=== PATIENT | male | born 1960 | race Caucasian/White ===

== ENCOUNTER 2017-02-21 02:02 | Emergency (ER) | payer SELFPAY ==
[~2017-02-21] VITALS: Ht 167.6 cm; Wt 90.0 kg
[~2017-02-21 02:02] MED LIST: BACTRIM DS1 TAB PO; CLINDAMYCIN300 M1 PO; LORTAB 10-325 M1 TAB PO; MEDDOSEPAK OR; NO HOME MEDS
[2017-02-21 03:30] LABS: HEMOGLOBIN 12.1 g/dl (14.0-18.0); IMMATURE GRANULOCYTES 0.7 % (0.0-1.0); MEAN CELL VOLUME 92.5 fL CALC (80.0-100.0); MEAN CORPUSCULAR HGB 30.3 pG CALC (26.0-32.0); MEAN CORPUSCULAR HGB CONC 32.7 g/L CALC (32.0-36.0); NEUT# 13.42 thou/uL (1.82-7.42); RED CELL DISTRI WIDTH 13.4 % (11.5-15.5)
[2017-02-21 03:43] LABS: ALBUMIN 3.6 g/dL (3.2-5.0); BILIRUBIN, TOTAL 0.8 mg/dL (0.0-1.4); CREATININE 1.8 mg/dL (0.7-1.3); POTASSIUM 3.6 mmol/l (3.5-5.1); TOTAL PROTEIN 7.4 g/dL (6.3-8.2)
[2017-02-21 03:52] LABS: URINE BILIRUBIN - DIPSTICK NEGATIVE (NEGATIVE); URINE BLOOD DIPSTICK LARGE (NEGATIVE); URINE CLARITY CLEAR; URINE COLOR YELLOW; URINE GLUCOSE - DIPSTICK NEGATIVE (NEGATIVE); URINE KETONE NEGATIVE (NEGATIVE); URINE LEUK ESTERASE NEGATIVE (NEGATIVE); URINE NITRITE - DIPSTICK NEGATIVE (Negative); URINE PROTEIN - DIPSTICK 100 mg/dL (NEG-TRACE); URINE UROBILINOGEN - DIPSTICK 0.2 E.U./dL (0.2)
[2017-02-21 04:14] LABS: URINE BACTERIA FEW hpf
[2017-02-21 04:15] LABS: URINE YEAST FEW hpf
[2017-02-21 08:41] VITALS: BP 102/52
== END 2017-02-21 08:44 | disposition short-term general hospital (02) | DRG 552 ==
LOC: ED 02:02 → ED-I 02:09 → ED 02:09 → ED-I 06:25 → ED 08:44
PROVIDERS: Emergency Medicine
DX: M54.5 Low back pain (principal); B95.62 Methicillin resistant Staphylococcus aureus infection as the cause of diseases classified elsewhere; R93.7 Abnormal findings on diagnostic imaging of other parts of musculoskeletal system; G89.29 Other chronic pain; R31.9 Hematuria, unspecified; D72.829 Elevated white blood cell count, unspecified; M47.817 Spondylosis without myelopathy or radiculopathy, lumbosacral region

== ENCOUNTER 2017-11-02 17:46 | Emergency (ER) | payer BC ==
[~2017-11-02] VITALS: Ht 167.6 cm; Wt 90.0 kg
[2017-11-02] MEDS ORDERED: PREDNISONE10 MG PO (20:17)
[2017-11-02 20:30] VITALS: BP 128/77
== END 2017-11-02 20:30 | disposition home or self-care (01) | DRG 74 ==
LOC: ED 17:46
DX: M54.12 Radiculopathy, cervical region (principal); M75.92 Shoulder lesion, unspecified, left shoulder; M46.92 Unspecified inflammatory spondylopathy, cervical region; I25.10 Atherosclerotic heart disease of native coronary artery without angina pectoris; M54.30 Sciatica, unspecified side

== ENCOUNTER 2017-11-12 12:37 | Emergency (ER) | payer BC ==
[~2017-11-12] VITALS: Ht 167.6 cm; Wt 90.9 kg
[~2017-11-12 12:37] MED LIST changes: +PREDNISONE10 MG PO
[2017-11-12] MEDS ORDERED: ASPERCREME LIDOCA41 TOP (13:16)
[2017-11-12] MEDS ORDERED: PREDNISONE50 MG PO (13:16)
[2017-11-12 13:18] VITALS: BP 135/75
== END 2017-11-12 13:20 | disposition home or self-care (01) | DRG 556 ==
LOC: ED 12:37
DX: M25.512 Pain in left shoulder (principal)

== ENCOUNTER 2018-04-17 05:23 | Inpatient (IN) | payer BC ==
[2018-04-17] VITALS (16 sets, daily range): BP systolic 90–107; BP diastolic 56–92
[~2018-04-17] VITALS: Ht 167.6 cm; Wt 84.0 kg
[~2018-04-17 05:23] MED LIST changes: +ASPERCREME LIDOCA41 TOP; +PREDNISONE50 MG PO
[2018-04-17 06:06] LABS: URINE BILIRUBIN - DIPSTICK NEGATIVE (NEGATIVE); URINE BLOOD DIPSTICK LARGE (NEGATIVE); URINE COLOR YELLOW; URINE GLUCOSE - DIPSTICK >=1000 mg/dL (NEGATIVE); URINE KETONE NEGATIVE (NEGATIVE); URINE LEUK ESTERASE NEGATIVE (NEGATIVE); URINE NITRITE - DIPSTICK NEGATIVE (Negative); URINE PROTEIN - DIPSTICK NEGATIVE (NEG-TRACE); URINE SPECIFIC GRAVITY <=1.005; URINE UROBILINOGEN - DIPSTICK 0.2 E.U./dL (0.2)
[2018-04-17 06:07] LABS: URINE CLARITY CLEAR
[2018-04-17 06:13] LABS: URINE RBC 25-50 RBC/hpf (0-5); URINE SQUAMOUS EPITHELIAL CELL FEW EPI/hpf (0-FEW)
[2018-04-17] MEDS ORDERED: PERCOCET 10/31 COMBO PO (06:16)
[2018-04-17] MEDS ORDERED: GABAPENTIN600 MG PO (06:17)
[2018-04-17] MEDS ORDERED: ROBAXIN-750750 MG PO (06:17)
[2018-04-17] MEDS ORDERED: AMOXICILLIN/CLAVULAN PO (06:19)
[2018-04-17 06:39] LABS: IMMATURE GRANULOCYTES 0.8 % (0.0-5.0); MEAN CELL VOLUME 91.4 fL CALC (80.0-100.0); MEAN CORPUSCULAR HGB 31.6 pG CALC (26.0-32.0); MEAN CORPUSCULAR HGB CONC 34.6 g/L CALC (32.0-36.0); NEUT# 3.12 thou/uL (1.82-7.42); RED BLOOD COUNT 4.87 mill/uL (4.70-6.10); RED CELL DISTRI WIDTH 12.5 % (11.5-15.5)
[2018-04-17 06:41] LABS: HEMATOCRIT 44.5 % (39.0-50.0); HEMOGLOBIN 15.4 g/dl (14.0-18.0)
[2018-04-17 06:45] LABS: ALBUMIN 3.5 g/dL (3.2-5.0); ALKALINE PHOSPHATASE 146 u/l (38-126); BILIRUBIN, TOTAL 0.5 mg/dL (0.0-1.4); BUN 30 mg/dL (9-20); BUN/CREATININE RATIO 34 (12-20 (CALC)); CARBON DIOXIDE 23 mmol/l (22-30); CHLORIDE 86 mmol/l (95-108); CREATININE 0.9 mg/dL (0.7-1.3); GFR > 60 ML/MIN (>=60 (CALC)); GFR FOR AFR.AMER. > 60 ML/MIN (>=60 (CALC)); SGOT/AST 53 u/l (17-59); SGPT/ALT 153 u/l (21-72); TOTAL PROTEIN 6.6 g/dL (6.3-8.2)
[2018-04-17 06:55] LABS: ANION GAP 18 (6-22 (CALC)); POTASSIUM 5.1 mmol/l (3.5-5.1); SODIUM 122 mmol/l (137-146)
[2018-04-18] VITALS (10 sets, daily range): BP systolic 94–174; BP diastolic 62–91
[2018-04-18 05:07] LABS: HEMATOCRIT 42.2 % (39.0-50.0); HEMOGLOBIN 14.4 g/dl (14.0-18.0); MEAN CELL VOLUME 92.3 fL CALC (80.0-100.0); MEAN CORPUSCULAR HGB 31.5 pG CALC (26.0-32.0); MEAN CORPUSCULAR HGB CONC 34.1 g/L CALC (32.0-36.0); NEUT# 2.25 thou/uL (1.82-7.42); RED BLOOD COUNT 4.57 mill/uL (4.70-6.10); RED CELL DISTRI WIDTH 13.2 % (11.5-15.5)
[2018-04-18 05:28] LABS: ALKALINE PHOSPHATASE 86 u/l (38-126); BILIRUBIN, TOTAL 0.4 mg/dL (0.0-1.4); BUN 18 mg/dL (9-20); BUN/CREATININE RATIO 24 (12-20 (CALC)); CARBON DIOXIDE 23 mmol/l (22-30); CREATININE 0.8 mg/dL (0.7-1.3); GFR > 60 ML/MIN (>=60 (CALC)); GFR FOR AFR.AMER. > 60 ML/MIN (>=60 (CALC)); MAGNESIUM 1.8 mg/dL (1.6-2.3); SGOT/AST 52 u/l (17-59); SGPT/ALT 109 u/l (21-72); TOTAL PROTEIN 5.5 g/dL (6.3-8.2)
[2018-04-18 05:30] LABS: ANION GAP 11 (6-22 (CALC)); SODIUM 134 mmol/l (137-146)
[2018-04-18 05:31] LABS: ALBUMIN 2.7 g/dL (3.2-5.0); CHLORIDE 104 mmol/l (95-108); POTASSIUM 3.8 mmol/l (3.5-5.1)
[2018-04-18 06:18] LABS: URINE BILIRUBIN - DIPSTICK NEGATIVE (NEGATIVE); URINE BLOOD DIPSTICK LARGE (NEGATIVE); URINE COLOR YELLOW; URINE GLUCOSE - DIPSTICK >=1000 mg/dL (NEGATIVE); URINE KETONE NEGATIVE (NEGATIVE); URINE LEUK ESTERASE NEGATIVE (NEGATIVE); URINE NITRITE - DIPSTICK NEGATIVE (Negative); URINE PROTEIN - DIPSTICK NEGATIVE (NEG-TRACE); URINE SPECIFIC GRAVITY 1.015; URINE UROBILINOGEN - DIPSTICK 0.2 E.U./dL (0.2)
[2018-04-18 06:19] LABS: URINE CLARITY SL CLOUDY
[2018-04-19 00:27] VITALS: BP 104/71
[2018-04-19 02:00] VITALS: BP 131/77
[2018-04-19 04:16] VITALS: BP 123/79
[2018-04-19 06:00] VITALS: BP 140/83
[2018-04-19 08:00] VITALS: BP 148/99
[2018-04-19 11:00] VITALS: BP 128/74
== END 2018-04-19 15:15 | disposition home or self-care (01) | DRG 638 ==
LOC: ED 05:23 → ED-I 07:06 → ED 07:19 → ICU 07:20
PROVIDERS: Emergency Medicine; Internal Medicine Nephrology; ADMIT Internal Medicine; ATTEND Internal Medicine
PROC: 3E0234Z Introduction of Serum, Toxoid and Vaccine into Muscle, Percutaneous Approach (ICD-10-PCS; principal; 2018-04-18)
DX: E11.00 Type 2 diabetes mellitus with hyperosmolarity without nonketotic hyperglycemic-hyperosmolar coma (NKHHC) (principal); E87.1 Hypo-osmolality and hyponatremia; M54.30 Sciatica, unspecified side; K04.7 Periapical abscess without sinus; I10 Essential (primary) hypertension; R31.21 Asymptomatic microscopic hematuria; N20.0 Calculus of kidney; N28.89 Other specified disorders of kidney and ureter; Z86.14 Personal history of Methicillin resistant Staphylococcus aureus infection; Z23 Encounter for immunization; Z80.59 Family history of malignant neoplasm of other urinary tract organ; Z87.891 Personal history of nicotine dependence
CPT/HCPCS: Q9967

== ENCOUNTER 2018-05-13 17:38 | Emergency (ER) | payer BC ==
[~2018-05-13] VITALS: Ht 167.6 cm; Wt 88.0 kg
[~2018-05-13 17:38] MED LIST changes: +ALLERGY RELF10 M3 PO; +AMARYL2 MG PO; +AMOX/K CLAV875 M1 PO; +AMOXICILLIN/CLAVULAN PO; +DOXYCYCLINE100 MG; +GABAPENTIN300 M2; +GABAPENTIN600 MG PO; +JANUVIA50 MG PO; +METFORMIN1000 MG PO; +METHOCARBAM500 MG PO; +PERCOCET 10/31 COMBO PO; +ROBAXIN-750750 MG PO
[2018-05-13 18:34] LABS: HEMATOCRIT 38.8 % (39.0-50.0); HEMOGLOBIN 12.8 g/dl (14.0-18.0); MEAN CELL VOLUME 95.8 fL CALC (80.0-100.0); MEAN CORPUSCULAR HGB 31.6 pG CALC (26.0-32.0); RED BLOOD COUNT 4.05 mill/uL (4.70-6.10); RED CELL DISTRI WIDTH 13.2 % (11.5-15.5)
[2018-05-13 18:49] LABS: PROTHROMBIN TIME 10.4 SECONDS (9.0-12.5)
[2018-05-13 19:05] LABS: ALKALINE PHOSPHATASE 71 u/l (38-126); BILIRUBIN, TOTAL 0.4 mg/dL (0.0-1.4); BUN 20 mg/dL (9-20); BUN/CREATININE RATIO 20 (12-20 (CALC)); CARBON DIOXIDE 28 mmol/l (22-30); CHLORIDE 102 mmol/l (95-108); ETHYL ALCOHOL 0 mg/dl (0-30); GFR > 60 ML/MIN (>=60 (CALC)); GFR FOR AFR.AMER. > 60 ML/MIN (>=60 (CALC)); SGOT/AST 60 u/l (17-59); SODIUM 140 mmol/l (137-146); TOTAL PROTEIN 6.3 g/dL (6.3-8.2)
[2018-05-13 19:06] LABS: IMMATURE GRANULOCYTES 0.8 % (0.0-5.0); NEUT# 1.78 thou/uL (1.82-7.42)
[2018-05-13 19:07] LABS: ALBUMIN 3.4 g/dL (3.2-5.0); ANION GAP 15 (6-22 (CALC)); POTASSIUM 4.7 mmol/l (3.5-5.1)
[2018-05-13 19:17] LABS: MYOGLOBIN 43 ng/mL (0 - 121)
[2018-05-13 19:18] LABS: URINE BILIRUBIN - DIPSTICK NEGATIVE (NEGATIVE); URINE BLOOD DIPSTICK LARGE (NEGATIVE); URINE COLOR YELLOW; URINE GLUCOSE - DIPSTICK 250 mg/dL (NEGATIVE); URINE KETONE NEGATIVE (NEGATIVE); URINE LEUK ESTERASE NEGATIVE (NEGATIVE); URINE NITRITE - DIPSTICK NEGATIVE (Negative); URINE PH 5.5 (4.5-8.0); URINE PROTEIN - DIPSTICK TRACE mg/dL (NEG-TRACE); URINE SPECIFIC GRAVITY >=1.030; URINE UROBILINOGEN - DIPSTICK 0.2 E.U./dL (0.2)
[2018-05-13 19:19] LABS: URINE CLARITY CLEAR
[2018-05-13 19:33] LABS: BARBITURATES NEGATIVE (NEGATIVE); COCAINE NEGATIVE (NEGATIVE); METHADONE NEGATIVE (NEGATIVE); TETRAHYDROCANNABIONOL POSITIVE (NEGATIVE); TRICYLIC ANTIDEPRESSANTS NEGATIVE (NEGATIVE); URINE RBC TNTC RBC/hpf (0-5); URINE SQUAMOUS EPITHELIAL CELL FEW EPI/hpf (0-FEW)
[2018-05-13 19:34] LABS: OXCYCODONE POSITIVE (NEGATIVE)
[2018-05-13 20:13] VITALS: BP 111/71
== END 2018-05-13 20:13 | DRG 312 ==
LOC: ED 17:38
PROVIDERS: Emergency Medicine
DX: R55 Syncope and collapse (principal); D69.6 Thrombocytopenia, unspecified; I25.10 Atherosclerotic heart disease of native coronary artery without angina pectoris; E11.9 Type 2 diabetes mellitus without complications; Z79.4 Long term (current) use of insulin

== ENCOUNTER 2018-07-16 18:56 | Emergency (ER) | payer BC ==
[~2018-07-16] VITALS: Ht 30.5 cm; Wt 93.2 kg
[2018-07-16 19:52] LABS: HEMATOCRIT 44.4 % (39.0-50.0); HEMOGLOBIN 14.6 g/dl (14.0-18.0); IMMATURE GRANULOCYTES 0.3 % (0.0-5.0); MEAN CELL VOLUME 91.9 fL CALC (80.0-100.0); MEAN CORPUSCULAR HGB 30.2 pG CALC (26.0-32.0); MEAN CORPUSCULAR HGB CONC 32.9 g/L CALC (32.0-36.0); NEUT# 3.15 thou/uL (1.82-7.42); RED BLOOD COUNT 4.83 mill/uL (4.70-6.10); RED CELL DISTRI WIDTH 13.2 % (11.5-15.5)
[2018-07-16 20:11] LABS: D-DIMER 0.47 mg/L (0.19-0.60); PROTHROMBIN TIME 10.6 SECONDS (9.0-12.5)
[2018-07-16 20:14] LABS: ALKALINE PHOSPHATASE 86 u/l (38-126); ANION GAP 15 (6-22 (CALC)); BILIRUBIN, TOTAL 0.4 mg/dL (0.0-1.4); BUN 24 mg/dL (9-20); BUN/CREATININE RATIO 20 (12-20 (CALC)); CARBON DIOXIDE 25 mmol/l (22-30); CHLORIDE 103 mmol/l (95-108); CREATININE 1.2 mg/dL (0.7-1.3); GFR > 60 ML/MIN (>=60 (CALC)); GFR FOR AFR.AMER. > 60 ML/MIN (>=60 (CALC)); POTASSIUM 4.2 mmol/l (3.5-5.1); SGOT/AST 35 u/l (17-59); SODIUM 139 mmol/l (137-146)
[2018-07-16 20:15] LABS: ALBUMIN 4.1 g/dL (3.2-5.0); TOTAL PROTEIN 7.6 g/dL (6.3-8.2)
[2018-07-16 20:24] LABS: MYOGLOBIN 108 ng/mL (0 - 121)
[2018-07-16] MEDS ORDERED: PROTONIX40 M2 PO (20:59)
[2018-07-16] MEDS ORDERED: LEVEMIR100 UNIT/M SC (20:59)
[2018-07-16] MEDS ORDERED: LIPITOR20 MG PO (20:59)
[2018-07-16] MEDS ORDERED: XANAX0.5 MG PO (21:00)
[2018-07-16] MEDS ORDERED: NOVOLIN R100 UNIT/M SC (21:02)
[2018-07-16 21:19] VITALS: BP 129/67
[2018-07-16 21:28] LABS: URINE BILIRUBIN - DIPSTICK NEGATIVE (NEGATIVE); URINE BLOOD DIPSTICK MODERATE (NEGATIVE); URINE COLOR YELLOW; URINE GLUCOSE - DIPSTICK NEGATIVE (NEGATIVE); URINE KETONE NEGATIVE (NEGATIVE); URINE LEUK ESTERASE NEGATIVE (NEGATIVE); URINE NITRITE - DIPSTICK NEGATIVE (Negative); URINE PH 5.5 (4.5-8.0); URINE PROTEIN - DIPSTICK NEGATIVE (NEG-TRACE); URINE SPECIFIC GRAVITY >=1.030; URINE UROBILINOGEN - DIPSTICK 0.2 E.U./dL (0.2)
[2018-07-16 21:32] LABS: URINE CLARITY CLEAR
[2018-07-16 21:41] LABS: URINE SQUAMOUS EPITHELIAL CELL FEW EPI/hpf (0-FEW)
[2018-07-18] MEDS ORDERED: OXYCODONE10 M1 PO (10:13)
== END 2018-07-16 21:28 | disposition home or self-care (01) | DRG 312 ==
LOC: ED 18:56
PROVIDERS: Family Medicine
DX: I95.1 Orthostatic hypotension (principal); R42 Dizziness and giddiness

== ENCOUNTER 2018-08-01 03:58 | Emergency (ER) | payer BC ==
[~2018-08-01] VITALS: Ht 167.6 cm; Wt 92.0 kg
[~2018-08-01 03:58] MED LIST changes: +LEVEMIR100 UNIT/M SC; +LIPITOR20 MG PO; +NOVOLIN R100 UNIT/M SC; +OXYCODONE10 M1 PO; +PROTONIX40 M2 PO; +XANAX0.5 MG PO
[2018-08-01 05:04] LABS: HEMATOCRIT 38.7 % (39.0-50.0); IMMATURE GRANULOCYTES 0.2 % (0.0-5.0); MEAN CELL VOLUME 91.9 fL CALC (80.0-100.0); MEAN CORPUSCULAR HGB 29.7 pG CALC (26.0-32.0); MEAN CORPUSCULAR HGB CONC 32.3 g/L CALC (32.0-36.0); NEUT# 4.01 thou/uL (1.82-7.42); RED BLOOD COUNT 4.21 mill/uL (4.70-6.10); RED CELL DISTRI WIDTH 13.3 % (11.5-15.5)
[2018-08-01 05:08] LABS: ALBUMIN 4.1 g/dL (3.2-5.0); ALKALINE PHOSPHATASE 74 u/l (38-126); ANION GAP 15 (6-22 (CALC)); BILIRUBIN, TOTAL 0.4 mg/dL (0.0-1.4); BUN 29 mg/dL (9-20); BUN/CREATININE RATIO 25 (12-20 (CALC)); CARBON DIOXIDE 28 mmol/l (22-30); CHLORIDE 104 mmol/l (95-108); CREATININE 1.2 mg/dL (0.7-1.3); GFR > 60 ML/MIN (>=60 (CALC)); GFR FOR AFR.AMER. > 60 ML/MIN (>=60 (CALC)); POTASSIUM 4.6 mmol/l (3.5-5.1); SGOT/AST 40 u/l (17-59); SODIUM 142 mmol/l (137-146); TOTAL PROTEIN 7.8 g/dL (6.3-8.2)
[2018-08-01 05:18] LABS: MYOGLOBIN 42 ng/mL (0 - 121)
[2018-08-01 05:27] LABS: HEMOGLOBIN 12.5 g/dl (14.0-18.0)
[2018-08-01 06:09] LABS: URINE BILIRUBIN - DIPSTICK NEGATIVE (NEGATIVE); URINE BLOOD DIPSTICK SMALL (NEGATIVE); URINE COLOR YELLOW; URINE GLUCOSE - DIPSTICK NEGATIVE (NEGATIVE); URINE KETONE NEGATIVE (NEGATIVE); URINE LEUK ESTERASE NEGATIVE (NEGATIVE); URINE NITRITE - DIPSTICK NEGATIVE (Negative); URINE PROTEIN - DIPSTICK NEGATIVE (NEG-TRACE); URINE SPECIFIC GRAVITY >=1.030; URINE UROBILINOGEN - DIPSTICK 0.2 E.U./dL (0.2)
[2018-08-01 06:13] LABS: COCAINE NEGATIVE (NEGATIVE); TETRAHYDROCANNABIONOL POSITIVE (NEGATIVE); URINE SQUAMOUS EPITHELIAL CELL FEW EPI/hpf (0-FEW)
[2018-08-01 06:14] LABS: BARBITURATES NEGATIVE (NEGATIVE); METHADONE NEGATIVE (NEGATIVE); OXCYCODONE POSITIVE (NEGATIVE); TRICYLIC ANTIDEPRESSANTS NEGATIVE (NEGATIVE)
[2018-08-01 06:15] VITALS: BP 122/62
[2018-08-01] MEDS ORDERED: XANAX0.5 MG PO (06:33)
== END 2018-08-01 06:49 | disposition home or self-care (01) | DRG 880 ==
LOC: ED 03:58
PROVIDERS: Emergency Medicine
DX: F41.9 Anxiety disorder, unspecified (principal); F19.10 Other psychoactive substance abuse, uncomplicated; M54.30 Sciatica, unspecified side; B19.20 Unspecified viral hepatitis C without hepatic coma; I25.10 Atherosclerotic heart disease of native coronary artery without angina pectoris; E11.9 Type 2 diabetes mellitus without complications

== ENCOUNTER 2018-10-10 18:08 | Emergency (ER) | payer SELFPAY ==
[~2018-10-10] VITALS: Ht 167.6 cm; Wt 90.0 kg
[~2018-10-10 18:08] MED LIST changes: +PERCOCET1 TA4 PO
[2018-10-10] MEDS ORDERED: ALL DAY ALLG10 MG PO (18:51)
[2018-10-10 19:05] VITALS: BP 120/70
[2018-10-17] MEDS ORDERED: PERCOCET1 TA4 PO (15:04)
== END 2018-10-10 19:05 | disposition home or self-care (01) | DRG 563 ==
LOC: ED 18:08
DX: S39.012A Strain of muscle, fascia and tendon of lower back, initial encounter (principal); E11.9 Type 2 diabetes mellitus without complications; I25.10 Atherosclerotic heart disease of native coronary artery without angina pectoris; X58.XXXA Exposure to other specified factors, initial encounter; Y92.9 Unspecified place or not applicable; Z79.4 Long term (current) use of insulin

== ENCOUNTER 2018-10-11 12:25 | Emergency (ER) | payer SELFPAY ==
[~2018-10-11] VITALS: Ht 167.6 cm; Wt 71.0 kg
[~2018-10-11 12:25] MED LIST changes: +ALL DAY ALLG10 MG PO
[2018-10-11 14:40] VITALS: BP 129/77
[2018-10-17] MEDS ORDERED: PERCOCET1 TA4 PO (15:04)
== END 2018-10-11 14:40 | disposition home or self-care (01) | DRG 93 ==
LOC: ED 12:25
DX: G89.29 Other chronic pain (principal); M54.5 Low back pain; S39.012A Strain of muscle, fascia and tendon of lower back, initial encounter

== ENCOUNTER → 2018-10-17 | Outpatient (REF) | payer OTHER ==
[2018-10-17 14:17] LABS: BARBITURATES NEGATIVE (NEGATIVE); COCAINE NEGATIVE (NEGATIVE); METHADONE NEGATIVE (NEGATIVE); OXCYCODONE POSITIVE (NEGATIVE); TETRAHYDROCANNABIONOL POSITIVE (NEGATIVE); TRICYLIC ANTIDEPRESSANTS NEGATIVE (NEGATIVE)
[2018-10-17 14:19] VITALS: BP 137/96
== END | disposition home or self-care (01) | DRG 950 ==
LOC: PAIN/MGT 13:31
PROVIDERS: ATTEND Anesthesiology Pain Medicine
DX: Z51.81 Encounter for therapeutic drug level monitoring (principal); Z79.891 Long term (current) use of opiate analgesic

== ENCOUNTER 2019-01-24 08:30 | Day surgery (SDC) | payer BC ==
[~2019-01-24] VITALS: Ht 167.6 cm; Wt 92.5 kg
[2019-01-24] MEDS ORDERED: MAVYRET PO (08:57)
[2019-01-24] MEDS ORDERED: PERCOCET1 TA4 PO (09:30)
[2019-01-24 10:11] VITALS: BP 160/101
== END 2019-01-24 10:39 | disposition home or self-care (01) | DRG 552 ==
LOC: ORM 08:30
PROVIDERS: ATTEND Anesthesiology Pain Medicine
PROC: 3E0U33Z Introduction of Anti-inflammatory into Joints, Percutaneous Approach (ICD-10-PCS; principal; 2019-01-24)
PROC: 3E0U3BZ Introduction of Anesthetic Agent into Joints, Percutaneous Approach (ICD-10-PCS; 2019-01-24)
DX: M46.1 Sacroiliitis, not elsewhere classified (principal)

== ENCOUNTER 2019-02-21 06:47 | Day surgery (SDC) | payer BC ==
[~2019-02-21] VITALS: Ht 170.2 cm; Wt 93.0 kg
[~2019-02-21 06:47] MED LIST changes: +MAVYRET PO
[2019-02-21] MEDS ORDERED: PERCOCET1 TA4 PO (08:16)
[2019-02-21 08:30] VITALS: BP 131/78
== END 2019-02-21 08:58 | disposition home or self-care (01) | DRG 552 ==
LOC: ORM 06:47
PROVIDERS: ATTEND Anesthesiology Pain Medicine
PROC: 3E0U33Z Introduction of Anti-inflammatory into Joints, Percutaneous Approach (ICD-10-PCS; principal; 2019-02-21)
PROC: 3E0U3BZ Introduction of Anesthetic Agent into Joints, Percutaneous Approach (ICD-10-PCS; 2019-02-21)
DX: M46.1 Sacroiliitis, not elsewhere classified (principal); M54.5 Low back pain

== ENCOUNTER 2019-03-28 06:32 | Day surgery (SDC) | payer BC ==
[~2019-03-28] VITALS: Ht 170.2 cm; Wt 93.0 kg
[2019-03-28] MEDS ORDERED: PERCOCET1 TA4 PO (09:12)
[2019-03-28 09:17] VITALS: BP 117/73
[2019-04-24] MEDS ORDERED: PERCOCET1 TA4 PO (11:13)
== END 2019-03-28 09:35 | disposition home or self-care (01) | DRG 74 ==
LOC: ORM 06:32
PROVIDERS: ATTEND Anesthesiology Pain Medicine
PROC: 3E0233Z Introduction of Anti-inflammatory into Muscle, Percutaneous Approach (ICD-10-PCS; principal; 2019-03-28)
PROC: 3E023BZ Introduction of Anesthetic Agent into Muscle, Percutaneous Approach (ICD-10-PCS; 2019-03-28)
DX: G57.02 Lesion of sciatic nerve, left lower limb (principal)
CPT/HCPCS: Q9967

== ENCOUNTER 2019-05-23 14:37 | Emergency (ER) | payer BC ==
[~2019-05-23] VITALS: Ht 170.2 cm; Wt 85.0 kg
[2019-05-23 15:41] LABS: ANION GAP 15 (6-22 (CALC)); BUN 20 mg/dL (9-20); BUN/CREATININE RATIO 20 (12-20 (CALC)); CARBON DIOXIDE 24 mmol/l (22-30); CHLORIDE 104 mmol/l (95-108); GFR > 60 ML/MIN (>=60 (CALC)); GFR FOR AFR.AMER. > 60 ML/MIN (>=60 (CALC)); POTASSIUM 4.2 mmol/l (3.5-5.1); SODIUM 138 mmol/l (137-146)
[2019-05-23 18:19] VITALS: BP 131/87
== END 2019-05-23 18:27 | disposition home or self-care (01) | DRG 918 ==
LOC: ED 14:37
PROVIDERS: Family Medicine
DX: T38.3X1A Poisoning by insulin and oral hypoglycemic [antidiabetic] drugs, accidental (unintentional), initial encounter (principal); E11.9 Type 2 diabetes mellitus without complications; Z79.4 Long term (current) use of insulin

== ENCOUNTER 2019-08-02 13:58 | Emergency (ER) | payer BC ==
[~2019-08-02] VITALS: Ht 170.2 cm; Wt 93.0 kg
[2019-08-02] MEDS ORDERED: ESCITALOPRAM OX20 MG PO (16:20)
[2019-08-02] MEDS ORDERED: VITAMIN B-121000 MCG PO (16:21)
[2019-08-02] MEDS ORDERED: METHOCARBAM500 MG PO (16:21)
[2019-08-02 17:45] VITALS: BP 116/64
[2019-08-07] MEDS ORDERED: ALPRAZOLAM ER0.5 MG PO (09:15)
[2019-08-07] MEDS ORDERED: LEXAPRO20 MG PO (09:16)
[2019-08-07] MEDS ORDERED: PERCOCET1 TA4 PO (09:37)
== END 2019-08-02 17:45 | disposition home or self-care (01) | DRG 552 ==
LOC: ED 13:58
DX: M54.5 Low back pain (principal); I25.10 Atherosclerotic heart disease of native coronary artery without angina pectoris; E11.9 Type 2 diabetes mellitus without complications; Z79.4 Long term (current) use of insulin

== ENCOUNTER 2019-08-22 | Day surgery (SDC) | payer MEDICARE, BC ==
[~2019-08-22] MED LIST changes: +ALPRAZOLAM ER0.5 MG PO; +ESCITALOPRAM OX20 MG PO; +LEXAPRO20 MG PO; +VITAMIN B-121000 MCG PO
[2019-08-22] MEDS ORDERED: ATORVASTATIN CA40 MG PO (06:54)
[2019-08-22] MEDS ORDERED: PANTOPRAZOLE SO40 M1 PO (06:55)
[2019-08-22] MEDS ORDERED: D31000 UNIT PO (06:55)
[2019-10-09] MEDS ORDERED: PERCOCET1 TA4 PO (09:57)
[2019-11-06] MEDS ORDERED: PERCOCET1 TA4 PO (08:22)
[2019-12-04] MEDS ORDERED: PERCOCET1 TA4 PO (11:27)
[2020-01-01] MEDS ORDERED: PERCOCET1 TA4 PO ×2 (10:49→10:51)
[2020-02-05] MEDS ORDERED: PERCOCET1 TA4 PO (14:33)
[2020-03-04] MEDS ORDERED: DICLOFENAC75 MG PO (15:24)
[2020-03-04] MEDS ORDERED: PERCOCET1 TA4 PO (15:25)
[2020-04-01] MEDS ORDERED: PERCOCET1 TA4 PO (13:46)
[2020-04-01] MEDS ORDERED: LYRICA150 MG PO (13:48)
[2020-05-01] MEDS ORDERED: DICLOFENAC75 MG PO (11:52)
[2020-05-01] MEDS ORDERED: PERCOCET1 TA4 PO (11:53)
[2020-05-01] MEDS ORDERED: GABAPENTIN800 MG PO (11:55)
== END 2019-08-22 09:05 | disposition home or self-care (01) ==
DX: M54.5 Low back pain (principal); M53.3 Sacrococcygeal disorders, not elsewhere classified

== ENCOUNTER 2019-09-05 | Day surgery (SDC) | payer MEDICARE, BC ==
[~2019-09-05] MED LIST changes: +ATORVASTATIN CA40 MG PO; +D31000 UNIT PO; +PANTOPRAZOLE SO40 M1 PO
[2019-09-05] MEDS ORDERED: PERCOCET1 TA4 PO (08:53)
[2019-10-09] MEDS ORDERED: PERCOCET1 TA4 PO (09:57)
[2019-11-06] MEDS ORDERED: PERCOCET1 TA4 PO (08:22)
[2019-12-04] MEDS ORDERED: PERCOCET1 TA4 PO (11:27)
[2020-01-01] MEDS ORDERED: PERCOCET1 TA4 PO ×2 (10:49→10:51)
[2020-02-05] MEDS ORDERED: PERCOCET1 TA4 PO (14:33)
[2020-03-04] MEDS ORDERED: DICLOFENAC75 MG PO (15:24)
[2020-03-04] MEDS ORDERED: PERCOCET1 TA4 PO (15:25)
[2020-04-01] MEDS ORDERED: PERCOCET1 TA4 PO (13:46)
[2020-04-01] MEDS ORDERED: LYRICA150 MG PO (13:48)
[2020-05-01] MEDS ORDERED: DICLOFENAC75 MG PO (11:52)
[2020-05-01] MEDS ORDERED: PERCOCET1 TA4 PO (11:53)
[2020-05-01] MEDS ORDERED: GABAPENTIN800 MG PO (11:55)
== END 2019-09-05 09:40 | disposition home or self-care (01) ==
DX: M53.3 Sacrococcygeal disorders, not elsewhere classified (principal); M46.1 Sacroiliitis, not elsewhere classified

== ENCOUNTER 2019-10-17 | Day surgery (SDC) | payer MEDICARE, BC ==
[2019-11-06] MEDS ORDERED: PERCOCET1 TA4 PO (08:22)
[2019-12-04] MEDS ORDERED: PERCOCET1 TA4 PO (11:27)
[2020-01-01] MEDS ORDERED: PERCOCET1 TA4 PO ×2 (10:49→10:51)
[2020-02-05] MEDS ORDERED: PERCOCET1 TA4 PO (14:33)
[2020-03-04] MEDS ORDERED: DICLOFENAC75 MG PO (15:24)
[2020-03-04] MEDS ORDERED: PERCOCET1 TA4 PO (15:25)
[2020-04-01] MEDS ORDERED: PERCOCET1 TA4 PO (13:46)
[2020-04-01] MEDS ORDERED: LYRICA150 MG PO (13:48)
[2020-05-01] MEDS ORDERED: DICLOFENAC75 MG PO (11:52)
[2020-05-01] MEDS ORDERED: PERCOCET1 TA4 PO (11:53)
[2020-05-01] MEDS ORDERED: GABAPENTIN800 MG PO (11:55)
== END 2019-10-17 10:30 | disposition home or self-care (01) ==
DX: M54.5 Low back pain (principal); M46.1 Sacroiliitis, not elsewhere classified

== ENCOUNTER 2019-12-26 07:32 | Day surgery (SDC) | payer MEDICARE ==
[2019-12-26 10:35] VITALS: BP 123/61
[2020-01-01] MEDS ORDERED: PERCOCET1 TA4 PO ×2 (10:49→10:51)
[2020-02-05] MEDS ORDERED: PERCOCET1 TA4 PO (14:33)
[2020-03-04] MEDS ORDERED: DICLOFENAC75 MG PO (15:24)
[2020-03-04] MEDS ORDERED: PERCOCET1 TA4 PO (15:25)
[2020-04-01] MEDS ORDERED: PERCOCET1 TA4 PO (13:46)
[2020-04-01] MEDS ORDERED: LYRICA150 MG PO (13:48)
[2020-05-01] MEDS ORDERED: DICLOFENAC75 MG PO (11:52)
[2020-05-01] MEDS ORDERED: PERCOCET1 TA4 PO (11:53)
[2020-05-01] MEDS ORDERED: GABAPENTIN800 MG PO (11:55)
== END 2019-12-26 10:49 | disposition home or self-care (01) ==
LOC: ORM 07:32
PROVIDERS: ATTEND Anesthesiology Pain Medicine
DX: M46.1 Sacroiliitis, not elsewhere classified (principal); Z01.84 Encounter for antibody response examination

== ENCOUNTER 2020-01-23 06:26 | Day surgery (SDC) | payer MEDICARE ==
[~2020-01-23] VITALS: Ht 167.6 cm; Wt 96.2 kg
[2020-01-23 08:39] VITALS: BP 132/63
[2020-02-05] MEDS ORDERED: PERCOCET1 TA4 PO (14:33)
[2020-03-04] MEDS ORDERED: DICLOFENAC75 MG PO (15:24)
[2020-03-04] MEDS ORDERED: PERCOCET1 TA4 PO (15:25)
[2020-04-01] MEDS ORDERED: PERCOCET1 TA4 PO (13:46)
[2020-04-01] MEDS ORDERED: LYRICA150 MG PO (13:48)
[2020-05-01] MEDS ORDERED: DICLOFENAC75 MG PO (11:52)
[2020-05-01] MEDS ORDERED: PERCOCET1 TA4 PO (11:53)
[2020-05-01] MEDS ORDERED: GABAPENTIN800 MG PO (11:55)
== END 2020-01-23 09:22 | disposition home or self-care (01) ==
LOC: ORM 06:26
PROVIDERS: ATTEND Anesthesiology Pain Medicine
DX: Z01.84 Encounter for antibody response examination (principal)
CPT/HCPCS: 64450; G0260

== ENCOUNTER 2020-01-29 19:51 | Emergency (ER) | payer MEDICARE ==
[~2020-01-29] VITALS: Ht 167.6 cm; Wt 94.5 kg
[2020-01-29 22:42] VITALS: BP 148/72
[2020-02-05] MEDS ORDERED: PERCOCET1 TA4 PO (14:33)
[2020-03-04] MEDS ORDERED: DICLOFENAC75 MG PO (15:24)
[2020-03-04] MEDS ORDERED: PERCOCET1 TA4 PO (15:25)
[2020-04-01] MEDS ORDERED: PERCOCET1 TA4 PO (13:46)
[2020-04-01] MEDS ORDERED: LYRICA150 MG PO (13:48)
[2020-05-01] MEDS ORDERED: DICLOFENAC75 MG PO (11:52)
[2020-05-01] MEDS ORDERED: PERCOCET1 TA4 PO (11:53)
[2020-05-01] MEDS ORDERED: GABAPENTIN800 MG PO (11:55)
== END 2020-01-29 22:42 | disposition home or self-care (01) ==
LOC: ED 19:51
DX: S00.12XA Contusion of left eyelid and periocular area, initial encounter (principal); H11.32 Conjunctival hemorrhage, left eye; E11.9 Type 2 diabetes mellitus without complications; I25.10 Atherosclerotic heart disease of native coronary artery without angina pectoris; Y04.0XXA Assault by unarmed brawl or fight, initial encounter; Y92.009 Unspecified place in unspecified non-institutional (private) residence as the place of occurrence of the external cause; Z79.4 Long term (current) use of insulin; Z86.14 Personal history of Methicillin resistant Staphylococcus aureus infection

== ENCOUNTER 2021-04-24 17:14 | Observation (INO) | payer MEDICARE ==
[~2021-04-24] VITALS: Ht 167.6 cm; Wt 110.0 kg
[~2021-04-24 17:14] MED LIST changes: +DICLOFENAC75 MG PO; +GABAPENTIN800 MG PO; +LYRICA150 MG PO; +MEDDOSEPAK PO; +OXYCODONE15 MG PO
--- NOTE | 2021-04-24 17:15 | NUR ---
PATIENT AMBULATORY TO ROOM 11. BEDSIDE TRIAGE COMPLETED
[2021-04-24 18:17] LABS: HEMATOCRIT 41.9 % (39.0-50.0); HEMOGLOBIN 13.7 g/dl (14.0-18.0); IMMATURE GRANULOCYTES 0.1 % (0.0-5.0); MEAN CELL VOLUME 95.2 fL CALC (80.0-100.0); MEAN CORPUSCULAR HGB 31.1 pG CALC (26.0-32.0); MEAN CORPUSCULAR HGB CONC 32.7 g/dL CAL (32.0-36.0); NEUT# 4.95 thou/uL (1.82-7.42); RED BLOOD COUNT 4.4 mill/uL (4.70-6.10); RED CELL DISTRI WIDTH 14.2 % (11.5-15.5)
[2021-04-24 18:34] LABS: ALBUMIN 4.7 g/dL (3.2-5.0); ALKALINE PHOSPHATASE 71 u/l (38-126); ANION GAP 16 (6-22 (CALC)); BILIRUBIN, TOTAL 0.4 mg/dL (0.0-1.4); BUN 26 mg/dL (9-20); BUN/CREATININE RATIO 22 (12-20 (CALC)); CARBON DIOXIDE 24 mmol/l (22-30); CHLORIDE 100 mmol/l (95-108); CREATININE 1.2 mg/dL (0.7-1.3); GFR > 60 ML/MIN (>=60 (CALC)); GFR FOR AFR.AMER. > 60 ML/MIN (>=60 (CALC)); POTASSIUM 4.4 mmol/l (3.5-5.1); SGOT/AST 30 u/l (17-59); SODIUM 136 mmol/l (137-146)
--- NOTE | 2021-04-24 19:18 | NUR ---
REPORT GIVEN TO GODFREY BRAMBILA.
--- NOTE | 2021-04-24 20:15 | NUR ---
PT RESTING AWARE OF PLANNED ADMISSION, OFFERS NO NEW COMPLAINTS CALL CHE WITHIN REACH.
--- NOTE | 2021-04-24 21:09 | NUR ---
PT RESTING BED ASSIGNMENT REC'D NO NEW COMPLAINTS OFFERED. CALL CHE WITHIN REACH, VISITOR EARLIER GONE AT THIS TIME.
--- NOTE | 2021-04-24 21:59 | NUR ---
PT TRASNPORTED TO MED SURG ON TELE WITH ALL BELONGINGS WITH PT AND PT BELONGING RECORD COMPLETED.
[2021-04-24 22:00] VITALS: BP 124/80
--- NOTE | 2021-04-24 22:15 | NUR ---
PT RECEIVED FROM ED TO ROOM 273. ARRIVES VIA STRETCHER ACCOMPANIED BY burke BRAMBILA. PT AMBULATORY TO BED. GAIT UNSTEADY. PT DENIES PAIN AT THIS TIME. ORIENTED TO UNIT, ROOM, CALL CHE, LIGHTS, TV. ICE WATER PROVIDED. CALL CHE WITHIN REACH. AGREES TO CALL PRN.
[2021-04-24] MEDS ORDERED: METFORMIN500 M2 PO (22:30)
--- NOTE | 2021-04-24 22:45 | NUR ---
PHYSICAL ASSESMENT COMPLETE. PT CURRENTLY DENIES PAIN OR DISCOMFORT. SCHEDULED MEDICATIONS AND PRN MEDICATION ADMINISTERED, SEE E-MAR. PT DENIES ANY NEEDS AT THIS TIME. PLAN OF CARE REVIEWED, PT DENIES QUESTIONS, VERBALIZES UNDERSTANDING. ITEMS WITHIN REACH, BED LOCKED IN LOW POSITION W/ BEDRAILS UP X2. CALL CHE WITHIN REACH, AGREES TO CALL PRN.
[2021-04-25] VITALS: BP 133/81
[2021-04-25 04:00] VITALS: BP 99/57
--- NOTE | 2021-04-25 04:00 | NUR ---
PT LAYING IN BED WITH EYES CLOSED, APPEARS TO BE SLEEPING, APPEARS COMFORTABLE AND IN NO DISTRESS. RESPIRATIONS REGULAR AND UNLABORED. ITEMS REMAIN WITHIN REACH, CALL CHE REMAINS WITHIN REACH. BED REMAINS LOCKED AND IN LOW POSITION WITH BEDRAILS UP X2. WILL CONTINUE TO MONITOR.
[2021-04-25 06:25] LABS: HEMATOCRIT 41.1 % (39.0-50.0); HEMOGLOBIN 13.5 g/dl (14.0-18.0); MEAN CELL VOLUME 94.5 fL CALC (80.0-100.0); MEAN CORPUSCULAR HGB CONC 32.8 g/dL CAL (32.0-36.0); RED BLOOD COUNT 4.35 mill/uL (4.70-6.10); RED CELL DISTRI WIDTH 14.2 % (11.5-15.5)
[2021-04-25 06:57] LABS: ANION GAP 13 (6-22 (CALC)); BUN 25 mg/dL (9-20); BUN/CREATININE RATIO 25 (12-20 (CALC)); CARBON DIOXIDE 25 mmol/l (22-30); CHLORIDE 102 mmol/l (95-108); CHOLESTEROL HDL RATIO 3.4 (<4.4 (CALC)); GFR > 60 ML/MIN (>=60 (CALC)); GFR FOR AFR.AMER. > 60 ML/MIN (>=60 (CALC)); HDL CHOLESTEROL 48 mg/dL (>=40); POTASSIUM 4.1 mmol/l (3.5-5.1); SODIUM 136 mmol/l (137-146); TOTAL TRIGLYCERIDES 141 mg/dl (30-149); VLDL CHOLESTROL 28 mg/dl (8-62 (CALC))
[2021-04-25 07:08] LABS: CALCULATED LDLCHOLESTEROL 88 mg/dL (62-129 (CALC)); TOTAL CHOLESTEROL 164 mg/dl (0-199)
[2021-04-25 07:33] VITALS: BP 101/55
--- NOTE | 2021-04-25 08:00 | NUR ---
PT SEEN AWAKE, ALERT, ORIENTED X 3. LUNGS CLEAR, RA. PT WITH CHEST PAIN YESTERDAY, ABLE TO DESCRIBE WELL. DR ESCALERA HAS SEEN PT, WILL DISCHARGE TO HOME THIS MORNING.
[2021-04-25] MEDS ORDERED: ASPIRIN 81 LOW81 MG PO (09:35)
--- NOTE | 2021-04-25 11:22 | NUR ---
PT VERBALIZES UNDERSTANDING OF DC INSTRUCTIONS, IV REMOVED, TELEMETRY REMOVED, PT TAKEN BY WHEELCHAIR TO HIS VEHICLE.
[2021-04-28] MEDS ORDERED: PERCOCET1 TA4 PO (15:13)
[2021-04-28] MEDS ORDERED: GABAPENTIN800 MG PO (15:15)
== END 2021-04-25 10:45 | disposition home or self-care (01) ==
LOC: ED 17:14 → ED-I 18:49 → ED 18:49 → MS2 19:03
PROVIDERS: Family Medicine; ADMIT Hospitalist; ATTEND Hospitalist
DX: R07.9 Chest pain, unspecified (principal); I25.10 Atherosclerotic heart disease of native coronary artery without angina pectoris; E11.40 Type 2 diabetes mellitus with diabetic neuropathy, unspecified; F41.9 Anxiety disorder, unspecified; F32.9 Major depressive disorder, single episode, unspecified; E78.5 Hyperlipidemia, unspecified; G89.4 Chronic pain syndrome; E66.9 Obesity, unspecified; Z87.891 Personal history of nicotine dependence; Z87.442 Personal history of urinary calculi; Z79.4 Long term (current) use of insulin; Z86.14 Personal history of Methicillin resistant Staphylococcus aureus infection; Z20.822 Contact with and (suspected) exposure to COVID-19
CPT/HCPCS: J1650

== ENCOUNTER 2021-10-07 08:16 | Day surgery (SDC) | payer MEDICARE ==
[~2021-10-07 08:16] MED LIST changes: +ASPIRIN 81 LOW81 MG PO; +METFORMIN500 M2 PO
[2021-10-07] MEDS ORDERED: FUROSEMIDE20 MG PO (08:50)
[2021-10-07] MEDS ORDERED: K-TAB20 MEQ PO (08:55)
[2021-10-07 10:25] VITALS: BP 115/64
== END 2021-10-08 10:49 | disposition home or self-care (01) ==
LOC: ORM 08:16
PROVIDERS: ATTEND Physical Medicine & Rehabilitation Pain Medicine
DX: M46.1 Sacroiliitis, not elsewhere classified (principal)
CPT/HCPCS: Q9967

== ENCOUNTER 2022-07-14 03:09 | Emergency (ER) | payer MEDICARE ==
[~2022-07-14] VITALS: Ht 167.6 cm; Wt 90.9 kg
[~2022-07-14 03:09] MED LIST changes: +FUROSEMIDE20 MG PO; +K-TAB20 MEQ PO
[2022-07-14] MEDS ORDERED: TAMSULOSIN0.4 MG PO (03:34)
[2022-07-14] MEDS ORDERED: OXYCODO-APAP1 TA2 PO (03:36)
[2022-07-14 03:42] LABS: IMMATURE GRANULOCYTES 0.5 % (0.0-5.0); MEAN CELL VOLUME 95.4 fL CALC (80.0-100.0); MEAN CORPUSCULAR HGB 31.6 pG CALC (26.0-32.0); MEAN CORPUSCULAR HGB CONC 33.1 g/dL CAL (32.0-36.0); NEUT# 2.8 thou/uL (1.82-7.42); RED BLOOD COUNT 3.73 mill/uL (4.70-6.10); RED CELL DISTRI WIDTH 13.3 % (11.5-15.5)
[2022-07-14 03:50] LABS: HEMATOCRIT 35.6 % (39.0-50.0); HEMOGLOBIN 11.8 g/dl (14.0-18.0)
[2022-07-14 03:55] LABS: ALKALINE PHOSPHATASE 71 u/l (38-126); ANION GAP 11 (6-22 (CALC)); BUN 36 mg/dL (9-20); BUN/CREATININE RATIO 26 (12-20 (CALC)); CARBON DIOXIDE 28 mmol/l (22-30); CHLORIDE 104 mmol/l (95-108); CPK 514 u/l (52-200); CREATININE 1.4 mg/dL (0.7-1.3); GFR FOR AFR.AMER. > 60 ML/MIN (>=60 (CALC)); GFR OTHER RACES 52 ML/MIN (>=60 (CALC)); MAGNESIUM 1.9 mg/dL (1.6-2.3); POTASSIUM 4.4 mmol/l (3.5-5.1); SGOT/AST 39 u/l (17-59); SODIUM 139 mmol/l (137-146); TOTAL PROTEIN 6.5 g/dL (6.3-8.2)
[2022-07-14 03:56] LABS: BILIRUBIN, TOTAL 0.1 mg/dL (0.0-1.4)
[2022-07-14 04:04] LABS: MYOGLOBIN 363 ng/mL (0 - 121)
[2022-07-14 04:47] LABS: URINE BILIRUBIN - DIPSTICK NEGATIVE (NEGATIVE); URINE BLOOD DIPSTICK LARGE (NEGATIVE); URINE COLOR YELLOW; URINE GLUCOSE - DIPSTICK NEGATIVE (NEGATIVE); URINE KETONE NEGATIVE (NEGATIVE); URINE LEUK ESTERASE NEGATIVE (NEGATIVE); URINE PH 5.5 (4.5-8.0); URINE PROTEIN - DIPSTICK NEGATIVE (NEG-TRACE); URINE SPECIFIC GRAVITY 1.025; URINE UROBILINOGEN - DIPSTICK 0.2 E.U./dL (0.2)
[2022-07-14 04:49] LABS: URINE NITRITE - DIPSTICK NEGATIVE (Negative)
[2022-07-14 05:14] LABS: URINE RBC 25-50 RBC/hpf (0-5); URINE SQUAMOUS EPITHELIAL CELL FEW EPI/hpf (0-FEW); URINE WBC 0-2 WBC/hpf (0-5)
[2022-07-14 06:01] VITALS: BP 105/64
[2022-07-14 06:10] VITALS: BP 105/64
== END 2022-07-14 06:43 | disposition home or self-care (01) ==
LOC: ED 03:09
PROVIDERS: Family Medicine
DX: Z79.84 Long term (current) use of oral hypoglycemic drugs (principal); G89.4 Chronic pain syndrome; I12.9 Hypertensive chronic kidney disease with stage 1 through stage 4 chronic kidney disease, or unspecified chronic kidney disease; E11.22 Type 2 diabetes mellitus with diabetic chronic kidney disease; N18.9 Chronic kidney disease, unspecified; I25.10 Atherosclerotic heart disease of native coronary artery without angina pectoris; R53.1 Weakness

== ENCOUNTER 2022-07-22 14:41 | Observation (INO) | payer MEDICARE ==
[~2022-07-22] VITALS: Ht 167.6 cm; Wt 90.8 kg
[~2022-07-22 14:41] MED LIST changes: +OXYCODO-APAP1 TA2 PO; +TAMSULOSIN0.4 MG PO
[2022-07-22 15:55] LABS: ALBUMIN 4.7 g/dL (3.2-5.0); ALKALINE PHOSPHATASE 82 u/l (38-126); ANION GAP 18 (6-22 (CALC)); BUN 24 mg/dL (9-20); BUN/CREATININE RATIO 20 (12-20 (CALC)); CARBON DIOXIDE 24 mmol/l (22-30); CHLORIDE 102 mmol/l (95-108); CREATININE 1.2 mg/dL (0.7-1.3); GFR FOR AFR.AMER. > 60 ML/MIN (>=60 (CALC)); GFR OTHER RACES > 60 ML/MIN (>=60 (CALC)); LIPASE 32 u/l (23-300); POTASSIUM 4.4 mmol/l (3.5-5.1); SGOT/AST 27 u/l (17-59); SODIUM 140 mmol/l (137-146)
[2022-07-22 15:56] LABS: BILIRUBIN, TOTAL 0.4 mg/dL (0.0-1.4); TOTAL PROTEIN 7.9 g/dL (6.3-8.2)
[2022-07-22 16:20] LABS: HEMATOCRIT 41.3 % (39.0-50.0); IMMATURE GRANULOCYTES 0.2 % (0.0-5.0); MEAN CELL VOLUME 92.4 fL CALC (80.0-100.0); MEAN CORPUSCULAR HGB 31.3 pG CALC (26.0-32.0); MEAN CORPUSCULAR HGB CONC 33.9 g/dL CAL (32.0-36.0); NEUT# 3.48 thou/uL (1.82-7.42); RED BLOOD COUNT 4.47 mill/uL (4.70-6.10)
[2022-07-22 16:21] LABS: URINE BILIRUBIN - DIPSTICK NEGATIVE (NEGATIVE); URINE BLOOD DIPSTICK LARGE (NEGATIVE); URINE COLOR YELLOW; URINE GLUCOSE - DIPSTICK NEGATIVE (NEGATIVE); URINE KETONE TRACE mg/dL (NEGATIVE); URINE LEUK ESTERASE NEGATIVE (NEGATIVE); URINE PROTEIN - DIPSTICK 30 mg/dL (NEG-TRACE); URINE SPECIFIC GRAVITY >=1.030; URINE UROBILINOGEN - DIPSTICK 0.2 E.U./dL (0.2)
[2022-07-22 16:24] LABS: URINE NITRITE - DIPSTICK NEGATIVE (Negative)
[2022-07-22 16:28] LABS: URINE WBC 0-2 WBC/hpf (0-5)
[2022-07-22 18:17] VITALS: BP 124/63
--- NOTE | 2022-07-22 18:34 | NUR ---
1810 PT ARRIVED TO FLOOR VIA WC FROM ER TO RROM 262 WITH ALL PERSONAL BELONGINGS. PT TRANSFERRED TO BED WITH STANDBY ASSIST. PT ALERT AND ORIENTED X 4. NO C/O PAIN VOICED AT THIS TIME. NO SIGNS OF DISTRESS NOTED. RESPIRATIONS EVEN AND UNLABORED. BEDSIDE REPORT RECEIVED FROM KOSTA JOSEPH. ALL NEEDS ATTENDED TO. PT ORIENTED TO ROOM, CALL CHE AND BED CONTROLS. SAFETY PRECAUTIONS IN PLACE.
[2022-07-22 18:54] VITALS: BP 142/58
[2022-07-22 19:00] VITALS: BP 142/58
--- NOTE | 2022-07-22 20:19 | NUR ---
Pt is in bed watching tv. Per pt he has a pain 9/10 on the right eye;Dr clay currently waiting on orders. Tylenol offered to pt but he declined "cause it will not help with my pain" states the pt. Admission assessment completed. lung sounds clear, ABD soft, no tenderness. skin intact. Patch on R. eye post-op. No sign of acute distress at this time. Call galindo in reach, bed alarm on. Will continue to monitor
[2022-07-22 23:35] VITALS: BP 140/62
--- NOTE | 2022-07-23 00:30 | NUR ---
Pt is currently awake. Per pt, he was having some anxiety. xanax 0.5mg given. Pt states he is doing much better. call light in reach, bed alarm on. Will continue to monitor.
[2022-07-23 04:00] VITALS: BP 121/56
[2022-07-23 04:18] VITALS: BP 121/56
[2022-07-23 06:16] LABS: HEMATOCRIT 39.2 % (39.0-50.0); HEMOGLOBIN 13.1 g/dl (14.0-18.0); IMMATURE GRANULOCYTES 0.1 % (0.0-5.0); MEAN CORPUSCULAR HGB 31.4 pG CALC (26.0-32.0); MEAN CORPUSCULAR HGB CONC 33.4 g/dL CAL (32.0-36.0); NEUT# 2.86 thou/uL (1.82-7.42); RED BLOOD COUNT 4.17 mill/uL (4.70-6.10)
[2022-07-23 06:26] LABS: ALKALINE PHOSPHATASE 61 u/l (38-126); ANION GAP 11 (6-22 (CALC)); BILIRUBIN, TOTAL 0.4 mg/dL (0.0-1.4); BUN 21 mg/dL (9-20); BUN/CREATININE RATIO 20 (12-20 (CALC)); CARBON DIOXIDE 25 mmol/l (22-30); CHLORIDE 107 mmol/l (95-108); CHOLESTEROL HDL RATIO 5.7 (<4.4 (CALC)); CREATININE 1.1 mg/dL (0.7-1.3); GFR FOR AFR.AMER. > 60 ML/MIN (>=60 (CALC)); GFR OTHER RACES > 60 ML/MIN (>=60 (CALC)); HDL CHOLESTEROL 38 mg/dL (>=40); POTASSIUM 4.5 mmol/l (3.5-5.1); SGOT/AST 20 u/l (17-59); SODIUM 138 mmol/l (137-146); TOTAL TRIGLYCERIDES 140 mg/dl (30-149); VLDL CHOLESTROL 28 mg/dl (8-62 (CALC))
[2022-07-23 06:31] LABS: ALBUMIN 3.6 g/dL (3.2-5.0); CALCULATED LDLCHOLESTEROL 149 mg/dL (62-129 (CALC)); TOTAL CHOLESTEROL 215 mg/dl (0-199); TOTAL PROTEIN 5.9 g/dL (6.3-8.2)
[2022-07-23 06:40] VITALS: BP 127/57
--- NOTE | 2022-07-23 07:38 | NUR ---
GOT REPORT FROM BEAM [employer]ILDER HELPER NURSE AT BEDSIDE. PATIENT IS SLEEPING. WOKE PATIENT AND INFORMED PATINT THAT I WILL BE NURSE TAKING OVER. PATIENT DENIES ANY DISTRESS BUT STATES HE HAS PAIN IN RIGHT EYE AND WOULD LIKE MEDICATION TO HELP. ADVISED WE WILL BE RIGHT BACK WITH MEDICATION. FALL PRECAUTIONS IN PLACE. CALL LIGHT AND BEDSIDE TABLE WITHIN REACH. ADVISED TO CALL IF PATIENT NEEDED ANYTHING. PATIENT VERBALIZED UNDERSTANDING.
[2022-07-23 10:24] VITALS: BP 131/66
[2022-07-23] MEDS ORDERED: CYMBALTA20 MG PO (11:33)
--- NOTE | 2022-07-23 12:00 | NUR ---
PATIENT IS SITTING IN BED WATCHING TV AND EATING LUNCH. PATIENT DENIES ANY DISTRESS. JUST FELT TIRED. PATIENT HAS NO NEEDS AT THIS TIME. ADVISED TO CALL IF NEEDING ANYTHING.
--- NOTE | 2022-07-23 15:18 | NUR ---
Discharge instructions given. Patient verbalizes understanding of same. Discharged in stable condition via Wheelchair to Home with family. All belongings sent with pt.
== END 2022-07-23 15:18 | disposition home or self-care (01) ==
LOC: ED 14:41 → ED-I 16:48 → ED 16:59 → MS2 17:00
PROVIDERS: Emergency Medicine; Nurse Practitioner Family; ADMIT Internal Medicine; ATTEND Internal Medicine
DX: R07.9 Chest pain, unspecified (principal); R53.83 Other fatigue; R31.9 Hematuria, unspecified; I12.9 Hypertensive chronic kidney disease with stage 1 through stage 4 chronic kidney disease, or unspecified chronic kidney disease; E11.22 Type 2 diabetes mellitus with diabetic chronic kidney disease; N18.9 Chronic kidney disease, unspecified; R00.1 Bradycardia, unspecified; I25.10 Atherosclerotic heart disease of native coronary artery without angina pectoris; E11.40 Type 2 diabetes mellitus with diabetic neuropathy, unspecified; G89.4 Chronic pain syndrome; F41.9 Anxiety disorder, unspecified; F32.A Depression, unspecified; B19.20 Unspecified viral hepatitis C without hepatic coma; Z79.84 Long term (current) use of oral hypoglycemic drugs; Z86.14 Personal history of Methicillin resistant Staphylococcus aureus infection; Z98.890 Other specified postprocedural states; Z20.822 Contact with and (suspected) exposure to COVID-19

== ENCOUNTER 2022-09-04 19:33 | Emergency (ER) | payer MEDICARE ==
[~2022-09-04] VITALS: Ht 167.6 cm; Wt 93.2 kg
[~2022-09-04 19:33] MED LIST changes: +CYMBALTA20 MG PO
[2022-09-04 20:24] VITALS: BP 138/71
[2022-09-04 20:31] VITALS: BP 124/55
[2022-09-04 20:45] VITALS: BP 117/75
[2022-09-04] MEDS ORDERED: PERCOCET 10/31 COMBO PO (20:47)
[2022-09-04 21:00] VITALS: BP 132/78
[2022-09-04 21:15] VITALS: BP 144/76
[2022-09-04 21:16] VITALS: BP 144/76
== END 2022-09-04 21:23 | disposition home or self-care (01) ==
LOC: ED 19:33
DX: M54.50 Low back pain, unspecified (principal); E11.22 Type 2 diabetes mellitus with diabetic chronic kidney disease; I12.9 Hypertensive chronic kidney disease with stage 1 through stage 4 chronic kidney disease, or unspecified chronic kidney disease; N18.9 Chronic kidney disease, unspecified; I25.10 Atherosclerotic heart disease of native coronary artery without angina pectoris; Z87.442 Personal history of urinary calculi; Z79.84 Long term (current) use of oral hypoglycemic drugs

== ENCOUNTER 2024-07-17 18:57 | Emergency (ER) | payer MEDICARE ==
[2024-07-17] VITALS (10 sets, daily range): BP systolic 87–114; BP diastolic 30–70
[~2024-07-17] VITALS: Ht 167.6 cm; Wt 100.7 kg
[2024-07-17] MEDS ORDERED: KETOROLAC TROMETHAMINE 30 MG/ML SDV IV ONE (19:10)
[2024-07-17] MEDS ORDERED: ACETAMINOPHEN 500 MG TAB PO ONE (19:10)
[2024-07-17] MEDS ORDERED: ASPIRIN 81 MG/TAB PO ONE (19:10)
[2024-07-17] MEDS ORDERED: ALUM & MAG HYDROX-SIMETHICONE 30 ML PO ONE (19:10)
[2024-07-17 19:45] LABS: BASO% 0.7 % (0-3); EOS% 2.8 % (0-8); HEMOGLOBIN 11.9 g/dl (14.0-18.0); IMMATURE GRANULOCYTES 0.6 % (0.0-5.0); LYMPH% 28.3 % (15-41); MEAN CELL VOLUME 95.9 fL CALC (80.0-100.0); MEAN CORPUSCULAR HGB 30.8 pG CALC (26.0-32.0); MEAN CORPUSCULAR HGB CONC 32.2 g/dL CAL (32.0-36.0); NEUT# 3.98 thou/uL (1.82-7.42); NEUT% 55.6 % (42-76); RED BLOOD COUNT 3.86 mill/uL (4.70-6.10); RED CELL DISTRI WIDTH 13.8 % (11.5-15.5)
[2024-07-17 19:59] LABS: ALBUMIN 4.6 g/dL (3.2-5.0); ALKALINE PHOSPHATASE 85 u/l (38-126); ANION GAP 17 (6-22 (CALC)); BILIRUBIN, TOTAL 0.5 mg/dL (0.2-1.3); BUN 42 mg/dL (8-23); BUN/CREATININE RATIO 16 (12-20 (CALC)); CARBON DIOXIDE 25 mmol/l (22-30); CHLORIDE 102 mmol/l (95-108); CREATININE 2.7 mg/dL (0.7-1.3); ESTIMATED GFR 26 ML/MIN (>=90 (CALC)); LIPASE 35 u/l (23-300); POTASSIUM 4.8 mmol/l (3.5-5.1); SGOT/AST 34 u/l (19-48); SODIUM 139 mmol/l (137-146); TOTAL PROTEIN 7.8 g/dL (6.3-8.2)
[2024-07-17 20:03] LABS: D-DIMER 0.62 mg/L (0.19-0.60)
[2024-07-17 20:06] LABS: ACT PARTIAL THROMBO TIME 26.9 SECONDS (20.0-32.5); PROTHROMBIN TIME 10.3 SECONDS (9.0-12.5)
[2024-07-17] MEDS ORDERED: SODIUM CHLORIDE 0.9% 1,000 ML IV ONE (20:10)
[2024-07-17] MEDS ORDERED: ASPIRIN 81 LOW81 MG PO (20:47)
[2024-07-17] MEDS ORDERED: TORADOL PO (20:47)
== END 2024-07-17 21:40 | disposition home or self-care (01) ==
LOC: ED 18:57
PROVIDERS: Family Medicine
DX: R07.89 Other chest pain (principal); I12.9 Hypertensive chronic kidney disease with stage 1 through stage 4 chronic kidney disease, or unspecified chronic kidney disease; E11.22 Type 2 diabetes mellitus with diabetic chronic kidney disease; N18.9 Chronic kidney disease, unspecified; I25.10 Atherosclerotic heart disease of native coronary artery without angina pectoris; E78.5 Hyperlipidemia, unspecified; Z95.0 Presence of cardiac pacemaker; Z79.84 Long term (current) use of oral hypoglycemic drugs

== ENCOUNTER 2024-08-27 09:26 | Emergency (ER) | payer MEDICARE ==
[~2024-08-27] VITALS: Ht 167.6 cm; Wt 98.0 kg
[~2024-08-27 09:26] MED LIST changes: +TORADOL PO
[2024-08-27 09:32] VITALS: BP 152/106
[2024-08-27 09:34] VITALS: BP 145/95
[2024-08-27] MEDS ORDERED: oxyCODONE 10MG/APAP 325 MG 1 COMBO TAB PO ONE (09:40)
[2024-08-27 10:09] VITALS: BP 145/95
== END 2024-08-27 10:09 | disposition home or self-care (01) ==
LOC: ED 09:26
DX: M54.50 Low back pain, unspecified (principal); G89.29 Other chronic pain; I12.9 Hypertensive chronic kidney disease with stage 1 through stage 4 chronic kidney disease, or unspecified chronic kidney disease; E11.22 Type 2 diabetes mellitus with diabetic chronic kidney disease; N18.9 Chronic kidney disease, unspecified; I25.2 Old myocardial infarction; Z79.84 Long term (current) use of oral hypoglycemic drugs